=== PATIENT | male | born 1985 | race Caucasian/White ===

== ENCOUNTER 2021-08-29 12:55 | Emergency (ER) | payer BC ==
[2021-08-29] MEDS ORDERED: Diphtheria,Pertussis(Acell),Tetanus Vaccine 0.5 ML Syringe IM ONE (14:06)
[2021-08-29] MEDS ORDERED: Lidocaine 1% 10 ML MDV INJECT ONE (14:06)
--- NOTE | 2021-08-29 15:00 | EDM.PDOC ---
ED HPI GENERAL MEDICAL PROBLEM - General Chief Complaint: Laceration Stated Complaint: RT HAND LAC Time Seen by Provider: 08/29/21 13:31 Source of Information: Reports: Patient, RN Notes Reviewed History Limitations: Reports: No Limitations - History of Present Illness INITIAL COMMENTS - FREE TEXT/NARRATIVE: Patient is a 35-year-old male presenting to the emergency department complaints of laceration to his right hand. Reports the blade of his remote control airplane hit him on the hand causing lacerations. He reports full function and sensation of his hand. He is unsure when his last tetanus vaccination was. - Related Data Allergies Allergy/AdvReac Type Severity Reaction Status Date / Time Sulfa (Sulfonamide Allergy Severe Cannot Verified 08/29/21 13:21 Antibiotics) Remember Home Meds: Home Meds . [No Known Home Meds] 08/29/21 [History] Past Medical History - Infectious Disease History Infectious Disease History: Reports: Novel Coronavirus - Past Surgical History HEENT Surgical History: Reports: Other (See Below) Other HEENT Surgeries/Procedures: Abscess removed from back of throat. Social & Family History - Tobacco Use Tobacco Use Status *Q: Never Tobacco User - Caffeine Use Caffeine Use: Reports: None - Recreational Drug Use Recreational Drug Use: No ED ROS GENERAL - Review of Systems Review Of Systems: Comprehensive ROS is negative, except as noted in HPI. ED EXAM, SKIN/RASH Exam: See Below Exam Limited By: No Limitations General Appearance: Alert, WD/WN, No Apparent Distress Respiratory/Chest: No Respiratory Distress, Lungs Clear, Normal Breath Sounds, No Accessory Muscle Use, Chest Non-Tender Cardiovascular: Normal Peripheral Pulses, Regular Rate, Rhythm, No Edema, No Gallop, No JVD, No Murmur, No Rub Neurological: Alert, Oriented, CN II-XII Intact, Normal Cognition, Normal Gait, Normal Reflexes, No Motor/Sensory Deficits Psychiatric: Normal Affect, Normal Mood Skin: Other (4 cm and 3 cm parallel lacerations to the thenar eminence on the right hand. Moderate amount of bleeding. 1.5 cm superficial flap laceration to the medial aspect of the right hand. No active bleeding.) ED SKIN PROCEDURES - Laceration/Wound Repair Right Ventral Hand Appearance: Subcutaneous Distal NVT: Neuro & Vascular Intact, No Tendon Injury Anesthetic Type: Local Local Anesthesia - Lidocaine (Xylocaine): 1% Plain Local Anesthetic Volume: 4cc Skin Prep: Chlorhexidine (Hibiciens), Providone-Iodine (Betadine), Saline, Sterile Drape Exploration/Debridement/Repair: Wound Explored, In a Bloodless Field, No Foreign Material Found Closed with: Sutures Lac/Wound length In cm: 7 (4 cm and 3 cm parallel lacerations) Suture Size: 4-0 # of Sutures: 14 Suture Type: Nylon Sterile Dressing Applied: Nurse Tetanus Status Addressed: Yes Complications: No Course - Vital Signs Last Recorded V/S: Last Vital Signs Temp 97 F 08/29/21 13:18 Pulse 68 08/29/21 13:18 Resp 16 08/29/21 13:18 BP 102/70 08/29/21 13:18 Pulse Ox 99 08/29/21 13:18 - Orders/Labs/Meds Orders: Active Orders 24 hr Category Date Time Status Vaccine to be Administered/Admin Charge [RC] ASDIRECTED Care 08/29/21 14:06 Active Meds: Medications Discontinued Medications Generic Name Dose Route Start Last Admin Trade Name Guerda PRN Reason Stop Dose Admin Diphtheria/Tetanus/Acell Pertussis 0.5 ml 08/29/21 14:06 08/29/21 14:27 Diphtheria,Pertussis(Acell),Tetanus Vaccine 0.5 Ml Syringe IM 08/29/21 14:07 0.5 ml .ONCE ONE Administration Lidocaine HCl 10 ml 08/29/21 14:06 08/29/21 14:27 Lidocaine 1% 10 Ml Mdv INJECT 08/29/21 14:07 10 ml ONETIME ONE Administration Departure - Departure Time of Disposition: 14:59 Disposition: Home, Self-Care 01 Condition: Good Clinical Impression: Laceration - Discharge Information *PRESCRIPTION DRUG MONITORING PROGRAM REVIEWED*: No *COPY OF PRESCRIPTION DRUG MONITORING REPORT IN PATIENT BONNIE: No Instructions: Laceration Care, Adult Referrals: PCP,None [Primary Care Provider] - Additional Instructions: You were seen in the emergency department today for lacerations to your right hand. The wound was cleansed and closed with 14 sutures. These should stay intact for 10 days. After that time they may be removed in the clinic by a nurse. You may call [phone] to set up a nurse visit to have the sutures removed. Keep the wound clean and dry. Wash with normal soap and water twice daily. Do not submerge the wound in water. Watch for signs of infection including increased redness, swelling, or purulent drainage. If these should occur, you should be seen either in the clinic or in the emergency department as antibiotic treatment may be needed. Return to the ER as needed. Sepsis Event Note (ED) - Evaluation Sepsis Screening Result: No Definite Risk - Focused Exam Vital Signs: Vital Signs Temp Pulse Resp BP Pulse Ox 08/29/21 13:18 97 F 68 16 102/70 99 - My Orders Last 24 Hours: My Active Orders 08/29/21 14:06 Vaccine to be Administered/Admin Charge [RC] ASDIRECTED - Assessment/Plan Last 24 Hours: My Active Orders 08/29/21 14:06 Vaccine to be Administered/Admin Charge [RC] ASDIRECTED
== END 2021-08-29 15:30 | disposition home or self-care (01) ==
LOC: JD.ED 12:55
DX: S61.411A Laceration without foreign body of right hand, initial encounter (principal); Z88.2 Allergy status to sulfonamides; Z86.16 Personal history of COVID-19; Z23 Encounter for immunization; W26.8XXA Contact with other sharp object(s), not elsewhere classified, initial encounter
CPT/HCPCS: 12002; 90471; 90715; 99282-25